=== PATIENT | male | born 1930 | race Caucasian/White ===

== ENCOUNTER 2017-03-12 09:18 | Emergency (ER) | payer MEDICARE, OTHER ==
[~2017-03-12 09:18] MED LIST: ADULT ASPIRIN81 MG PO; AGGRENOX1 CAP PO; AMIODARONE HCL200 MG PO; ASPIR-LOW81 M1 PO; CHOLESTEROL MED; CIPRO500 M2 PO; EQL FISH OIL 1,1 CA1 PO; FISH OIL 11000 MG/CA PO; FLOMAX0.4 M1 PO; GUIATUSS AC SY120 ML PO; LASIX20 MG PO; LEVAQUIN750 MG PO; LIPITOR20 M1 PO; LIPITOR20 MG PO; LOPERAMIDE2 M2 PO; LOSARTAN POTAS100 M1 PO; MAG-AL PLUS SUS30 ML PO; METOPROLOL SUCC25 M1 PO; METOPROLOL SUCC25 MG PO; MILK OF MAGNES311 MG PO; MULTIVITAMIN1 TAB PO; NORCO 5-325 TA1 EACH PO; NORCO 5/3251 TAB PO; PLAVIX75 M1 PO; PLAVIX75 MG PO; PREDNISONE20 M1 PO; PROTONIX40 MG PO; SENOKOT-S TABLE1 TAB PO; SENOKOT8.6 MG PO; TOPROL XL25 MG PO; UNKNOWN CHOLESTEROL; ZOCOR
[2017-03-12] MEDS ORDERED: PLAVIX75 M1 PO (10:02)
[2017-03-12 10:53] LABS: URINE LEUKOCYTE ESTERASE POSITIVE (NEG); URINE PROTEIN NEGATIVE (NEG)
[2017-03-12 10:55] LABS: URINE APPEARANCE CLEAR; URINE BILIRUBIN NEGATIVE (NEG); URINE BLOOD NEGATIVE (NEG); URINE COLOR YELLOW; URINE GLUCOSE (UA) SMALL (NEG); URINE KETONE NEGATIVE (NEG); URINE NITRITE NEGATIVE (NEG)
[2017-03-12 11:05] LABS: URINE MUCUS 3+
== END 2017-03-12 11:42 ==
LOC: EDMED 09:18
PROVIDERS: Emergency Medicine
DX: R10.9 Unspecified abdominal pain (principal); I25.10 Atherosclerotic heart disease of native coronary artery without angina pectoris